=== PATIENT | female | born 1940 | race Caucasian/White ===

== ENCOUNTER 2017-02-05 12:24 | Emergency (ER) | payer MEDICARE, MEDICAID ==
[~2017-02-05] VITALS: Ht 157.5 cm; Wt 56.7 kg
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
[2017-02-05] MEDS ORDERED: TYLENOL EXTRA500 MG ORAL (13:42)
[2017-02-05 14:01] VITALS: BP 152/72
--- NOTE | 2017-02-05 15:01 | Diagnostic Imaging Report ---
Indications: Fall, right elbow, right hip, right knee injury and pain Technique: 3 views right elbow, 2 views right hip, 3 views right knee. Findings: Comparison: None No fracture, dislocation, joint space widening or effusion , surrounding soft tissue swelling/foreign body/gas, or other acute changes are identified. IMPRESSION: No evidence of acute injury to the right elbow No evidence of acute injury to the right hip No evidence of acute injury to the right knee.
== END 2017-02-05 14:03 | disposition home or self-care (01) ==
LOC: EMR 13:36
DX: S80.211A Abrasion, right knee, initial encounter (principal); S50.311A Abrasion of right elbow, initial encounter; M25.551 Pain in right hip; V09.9XXA Pedestrian injured in unspecified transport accident, initial encounter; Y92.481 Parking lot as the place of occurrence of the external cause
CPT/HCPCS: 99284